=== PATIENT | female | born 1975 | race Caucasian/White ===

== ENCOUNTER 2016-10-17 22:20 | Observation (INO) | payer MEDICAID ==
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
[2016-10-17 22:21] LABS: BASOPHILS 0.6 %; BASOPHILS ABSOLUTE 0.04 10/3/uL (0.0-0.16); EOSINOPHILS 1.9 %; EOSINOPHILS ABSOLUTE 0.12 10/3/uL (0.0-0.53); HEMATOCRIT 29.4 % (36.0-48.0); LYMPHOCYTES 41.1 %; LYMPHOCYTES ABSOLUTE 2.57 10/3/uL (0.67-4.30); MANUAL DIFF NO %; MEAN CORPUS HGB CONC 30.6 g/dL (32.0-36.0); MEAN CORPUSCULAR VOLUME 78.4 fL (80-100); MEAN PLATELET VOLUME 8.7 fL (9.2-13.0); MONOCYTES 6.4 %; NEUTROPHILS ABSOLUTE 3.13 10/3/uL (2.02-8.40); PLATELET COUNT 396 10/3/uL (150-400); RED CELL COUNT 3.75 10/6/uL (4.0-5.6); WHITE BLOOD CELLS 6.3 10/3/uL (4.5-10.5)
[2016-10-17 22:27] LABS: PARTIAL THROMBO TIME 27.5 SEC (22.5-37.2); PROTIME (NOT ORD) 13.3 SEC (12.0-14.5)
[2016-10-17 22:31] LABS: D-DIMER QUANTITATIVE < 0.27 ug/mLFEU (< 0.50)
[2016-10-17 22:48] LABS: BUN (BLOOD UREA NITROGEN) 12 MG/DL (6-23); CALCIUM, SERUM 8.8 MG/DL (8.5-10.4); CHLORIDE, SERUM 111 MMOL/L (96-112); CO2 (CARBON DIOXIDE) 24 MMOL/L (24-34); GFR AFRICAN AMERICAN 93 ML/MIN (>=60); GFR NON AFRICAN AMERICAN 81 ML/MIN (>=60); GLUCOSE, SERUM 90 MG/DL (60-99); POTASSIUM, SERUM 3.6 MMOL/L (3.5-5.3); SODIUM, SERUM 140 MMOL/L (135-148); TROPONIN I <0.02 NG/ML (<0.05)
[2016-10-17 22:49] LABS: CHEST PAIN PROFILE TAT 0 Hrs 31 Mins
[2016-10-17] MEDS ORDERED: PROVHFA INH (23:55)
[2016-10-17] MEDS ORDERED: STEROID (23:55)
[2016-10-18 04:13] LABS: TROPONIN I <0.02 NG/ML (<0.05)
[2016-10-18 12:20] LABS: FREE T4 0.91 NG/DL (0.76-1.46)
[2016-10-19] MEDS ORDERED: FESO4 PO (14:57)
[2016-10-19] MEDS ORDERED: CLEOCIN300 MG PO (14:57)
== END 2016-10-19 15:09 | disposition home or self-care (01) ==
LOC: ER 22:20 → CDU1 23:59 → CDU2 10-18 00:50
PROVIDERS: Clinical Nurse Specialist; Nurse Practitioner Family
DX: R07.1 Chest pain on breathing (principal); K04.7 Periapical abscess without sinus; K21.9 Gastro-esophageal reflux disease without esophagitis; R51 Headache; J45.909 Unspecified asthma, uncomplicated; F17.210 Nicotine dependence, cigarettes, uncomplicated; D64.9 Anemia, unspecified; G89.29 Other chronic pain; Z82.49 Family history of ischemic heart disease and other diseases of the circulatory system; Z96.651 Presence of right artificial knee joint; Z98.51 Tubal ligation status; Z98.890 Other specified postprocedural states; Z79.2 Long term (current) use of antibiotics; Z79.899 Other long term (current) drug therapy
CPT/HCPCS: 70486; 71010; 71275; 78452; 80048; 83690; 83735; 83880; 84439; 84443; 84484; 85025; 85379; 85610; 85730; 93005; 93017; 94640; 96374; 96375; 96376; 99285; A9270-GY; A9502; G0378; J0153; J1170; J2405; Q9967